=== PATIENT | male | born 1940 | race American Indian/Alaskan Native ===

== ENCOUNTER 2018-07-07 21:39 | Observation (INO) | payer MEDICARE ==
[2018-07-07] MEDS ORDERED: Albuterol-Ipratrop 3 mg / 0.5 (3 ml) UD INH STA (22:56)
[2018-07-07] MEDS ORDERED: Albuterol-Ipratrop 3 mg / 0.5 (3 ml) UD ONE (23:16)
[2018-07-07 23:34] LABS: BASO % 0.4 % (0.0-2.0); EOS # 0.5 K/uL (0.0-0.7); HEMOGLOBIN 12.1 g/dL (12.0-18.0); LYMPH # 1.9 K/uL (1.0-4.3); LYMPH % 31.7 % (20.0-40.0); MEAN CELL VOLUME 71.2 fl (80.0-94.0); MEAN CORPUSCULAR HEMOGLOBIN 22.3 pg (27.0-31.0); MEAN CORPUSCULAR HGB CONC 31.3 g/dL (33.0-37.0); MEAN PLATELET VOLUME 10.4 fl (7.2-11.7); MONO # 0.6 K/uL (0.0-0.8); MONO % 9.5 % (0.0-10.0); NEUT # 3.1 K/uL (1.8-7.0); NEUT % 50.4 % (50.0-75.0); NRBC % 0.2 % (0.0-0.0); RBC 5.41 Mil/uL (4.40-5.90); RED CELL DISTRIBUTION WIDTH 14.7 % (11.5-14.5); WHITE BLOOD COUNT 6.1 K/uL (4.8-10.8)
--- NOTE | 2018-07-07 23:40 | ED PDOC ---
HPI: General Adult Time Seen by Provider: 07/07/18 22:30 Chief Complaint (Nursing): Cough, Cold, Congestion Chief Complaint (Provider): Cough x 1 week History Per: Patient History/Exam Limitations: no limitations Onset/Duration Of Symptoms: Days Have you had recent travel within the past 21 days to any of the following countries: [place], [place], [place] or [place]?: No Additional Complaint(s): 77 yo male with no known medical problems presents for evaluation of cough x 1 week. Pt states he has yellow phlegm and is unable to sleep at night due to the cough. Pt states he has burning central chest pain only when coughing. Pt had fever the first few days of cough but states he did not take temperature and it resolved in 1-2 days. Denies leg swelling. Denies SOB. Pt has not seen a PMD since childhood. Past Medical History Reviewed: Historical Data, Nursing Documentation, Vital Signs Vital Signs: Last Vital Signs Temp 98.1 F 07/07/18 21:47 Pulse 68 07/07/18 21:47 Resp 16 07/07/18 21:47 BP 148/76 07/07/18 21:47 Pulse Ox 98 07/07/18 21:47 - Medical History PMH: No Chronic Diseases - Surgical History Surgical History: No Surg Hx - Family History Family History: States: Unknown Family Hx - Living Arrangements Living Arrangements: With Family - Allergies Allergies/Adverse Reactions: Allergies Allergy/AdvReac Type Severity Reaction Status Date / Time No Known Allergies Allergy Verified 07/07/18 21:50 Review of Systems ROS Statement: Except As Marked, All Systems Reviewed And Found Negative Constitutional: Positive for: Fever (Resolved ). Negative for: Chills Cardiovascular: Positive for: Chest Pain (with cough ). Negative for: Palpitations Respiratory: Positive for: Cough Gastrointestinal: Negative for: Nausea, Vomiting, Abdominal Pain Physical Exam - Reviewed Nursing Documentation Reviewed: Yes Vital Signs Reviewed: Yes - Physical Exam Appears: Positive for: Well, Non-toxic, No Acute Distress Head Exam: Positive for: ATRAUMATIC, NORMAL INSPECTION, NORMOCEPHALIC Skin: Positive for: Normal Color, Warm, DRY Eye Exam: Positive for: Normal appearance ENT: Positive for: Normal ENT Inspection Neck: Positive for: Normal, Painless ROM Cardiovascular/Chest: Negative for: Regular Rate, Rhythm, Murmur Respiratory: Positive for: Rhonchi, Wheezing. Negative for: Normal Breath Sounds, Accessory Muscle Use, Respiratory Distress Gastrointestinal/Abdominal: Positive for: Normal Exam, Soft. Negative for: Tenderness Back: Positive for: Normal Inspection Extremity: Positive for: Normal ROM Neurologic/Psych: Positive for: Alert, Oriented - Laboratory Results Result Diagrams: 07/07/18 23:30 - ECG O2 Sat by Pulse Oximetry: 98 Pulse Ox Interpretation: Normal Medical Decision Making Medical Decision Making: Possible infiltrate on CXR. Labs ordered Atrial flutter on EKG, rate controlled. CXR and EKG reviewed with Dr. Corona. Pt endorsed to Haley Linder PA-C at 2345 pending labs. Disposition - Clinical Impression Clinical Impression: Cough, Atrial flutter - Patient ED Disposition Is Patient to be Admitted: Transfer of Care - Disposition Disposition: Transfer of Care Disposition Time: 23:44 Condition: STABLE
[2018-07-07 23:53] LABS: ALBUMIN 3.8 g/dL (3.5-5.0); ALT/SGPT 37 U/L (21-72); AST/SGOT 40 U/L (17-59); B-TYPE NATRIURETIC PEPTIDE 2220 pg/ml (0-900); BLOOD UREA NITROGEN 13 mg/dl (9-20); CALCIUM 8.8 mg/dL (8.4-10.2); GFR NON-AFRICAN AMERICAN > 60
[2018-07-07] MEDS ORDERED: Nitroglycerin 2% Ointment Foilpak UD TOP STA (23:57)
[2018-07-08] MEDS ORDERED: Enoxaparin 80 mg Syringe SC STA (00:02)
--- NOTE | 2018-07-08 00:06 | ED PDOC ---
- Laboratory Results Result Diagrams: 07/07/18 23:30 07/07/18 23:30 - ECG O2 Sat by Pulse Oximetry: 98 - Progress ED Course And Treament: Case endorsed to procedure writer from Gordon MULLINS pending labs BNP elevated. IV lasix, Nitro, Lovenox ordered Case discussed with Dr. Velazquez, medical service on-call, for admission Disposition - Clinical Impression Clinical Impression: Cough, Atrial flutter, CHF (congestive heart failure) - POA Present On Arrival: None - Disposition Disposition: Hospitalized as Observation Patient Disposition Time: 00:00 Condition: FAIR
[2018-07-08] MEDS ORDERED: Nitroglycerin 2% Ointment Foilpak UD TOP ONE (00:32)
[2018-07-08 05:36] VITALS: RESP 20
[2018-07-08] MEDS ORDERED: Magnesium Sulfate 2 gm/50 ml 2 GM/50 ML BAG IVPB ONE (08:16)
--- NOTE | 2018-07-08 09:02 | CARD ---
APPROVED REPORT Date of service: 07/07/2018 EKG Measurement Heart [id number] P76 [id number] <Conclusion> Atrial flutter with 4:[address] and T wave abnormality Abnormal ECG
--- NOTE | 2018-07-08 09:07 | CP.PCM.HP ---
<Jl Cheo - Last Filed: 07/08/18 08:55> History of Present Illness - History of Present Illness History of Present Illness: 77 y/o M was admitted for evaluation and management of atrial flutter. Pt presented to ED with productive cough and chest pain upon coughing. At ED, Albuterol neb, IV Lasix and magnessium were administered. EKG showed atrial flutter 4:1. --Today, pt was evaluated and examined by bedside with Dr Velazquez. Pt reported feeling better, cough is still presents but less productive, denies chest pain. Pt afebrile, tolerating PO with NO acute events overnight. PMD: none PMHx: denied PSHx: denied FHx: unknown SHx: denies smoking, alcohol or rec drugs. Present on Admission - Present on Admission Any Indicators Present on Admission: No Review of Systems - Constitutional Constitutional: absent: Chills, Fever - EENT Nose/Mouth/Throat: absent: Nasal Congestion, Sore Throat, Neck Pain, Neck Mass - Cardiovascular Cardiovascular: Chest Pain. absent: Dyspnea, Palpitations - Respiratory Respiratory: Cough. absent: Dyspnea, Hemoptysis - Gastrointestinal Gastrointestinal: absent: Abdominal Pain, Bloating, Nausea, Vomiting - Genitourinary Genitourinary: absent: Dysuria, Flank Pain, Hematuria Past Patient History - Past Medical History & Family History Past Medical History?: Yes - Past Social History Smoking Status: Former Smoker - CARDIAC Hx Cardiac Disorders: No (CHF) - PULMONARY Hx Respiratory Disorders: No - NEUROLOGICAL Hx Neurological Disorder: No - HEENT Hx HEENT Problems: No - RENAL Hx Chronic Kidney Disease: No - ENDOCRINE/METABOLIC Hx Endocrine Disorders: No - HEMATOLOGICAL/ONCOLOGICAL Hx Blood Disorders: No - INTEGUMENTARY Hx Dermatological Problems: No - MUSCULOSKELETAL/RHEUMATOLOGICAL Hx Musculoskeletal Disorders: No Hx Falls: No - GENITOURINARY/GYNECOLOGICAL Hx Genitourinary Disorders: No - PSYCHIATRIC Hx Psychophysiologic Disorder: No Hx Substance Use: No - SURGICAL HISTORY Hx Surgeries: No - ANESTHESIA Hx Anesthesia: No Hx Anesthesia Reactions: No Meds Allergies/Adverse Reactions: Allergies Allergy/AdvReac Type Severity Reaction Status Date / Time No Known Allergies Allergy Verified 07/07/18 21:50 Physical Exam - Constitutional Appears: No Acute Distress - Head Exam Head Exam: NORMAL INSPECTION - Eye Exam Eye Exam: EOMI, Normal appearance - ENT Exam ENT Exam: Mucous Membranes Moist - Neck Exam Neck exam: Positive for: Full Rom. Negative for: Meningismus - Respiratory Exam Respiratory Exam: NORMAL BREATHING PATTERN. absent: Chest Wall Tenderness, Rhonchi, Wheezes - Cardiovascular Exam Cardiovascular Exam: +S1, +S2 - GI/Abdominal Exam GI & Abdominal Exam: Soft. absent: Distended, Guarding, Rebound, Tenderness - Extremities Exam Extremities exam: Positive for: full ROM, normal inspection. Negative for: calf tenderness - Neurological Exam Neurological exam: Alert, Oriented x3 Results - Vital Signs Recent Vital Signs: Last Vital Signs Temp 99.1 F 07/08/18 07:34 Pulse 84 07/08/18 07:34 Resp 20 07/08/18 07:34 BP 166/77 H 07/08/18 07:34 Pulse Ox 100 07/08/18 07:34 - Labs Result Diagrams: 07/07/18 23:30 07/07/18 23:30 Labs: Laboratory Results - last 24 hr 07/07/18 07/07/18 07/07/18 23:30 23:30 23:38 WBC 6.1 RBC 5.41 Hgb 12.1 Hct 38.6 MCV 71.2 L MCH 22.3 L MCHC 31.3 L RDW 14.7 H Plt Count 160 MPV 10.4 Neut % (Auto) 50.4 Lymph % (Auto) 31.7 Christian % (Auto) 9.5 Eos % (Auto) 8.0 H Baso % (Auto) 0.4 Neut # (Auto) 3.1 Lymph # (Auto) 1.9 Christian # (Auto) 0.6 Eos # (Auto) 0.5 Baso # (Auto) 0.0 Sodium 140 Potassium 4.3 Chloride 105 Carbon Dioxide 29 Anion Gap 10 BUN 13 Creatinine 1.0 Est GFR ( Amer) > 60 Est GFR (Non-Af Amer) > 60 Random Glucose 112 H Calcium 8.8 Total Bilirubin 0.5 AST 40 ALT 37 Alkaline Phosphatase 74 Troponin I 0.0330 NT-Pro-B Natriuret Pep 2220 H Total Protein 7.4 Albumin 3.8 Globulin 3.7 Albumin/Globulin Ratio 1.0 Influenza Typ A,B (EIA) Negative for flu a/b Assessment & Plan - Assessment and Plan (Free Text) Assessment: 77 y/o M was admitted for evaluation and management of atrial flutter. PLAN: --Afebrile --Cardiology consult, Dr Loya --Echocardiogram --F/U bloodwork --Heart healthy diet --Continue management as ordered. Case discussed with Dr Marcus Morales PGY-2 - Date & Time Date: 07/08/18 Time: 09:14 <Kevon Velazquez - Last Filed: 07/09/18 19:57> Results - Vital Signs Recent Vital Signs: Last Vital Signs Temp 98 F 07/08/18 12:03 Pulse 73 07/08/18 12:03 Resp 20 07/08/18 12:03 BP 173/66 H 07/08/18 12:03 Pulse Ox 96 07/08/18 12:03 - Labs Result Diagrams: 07/07/18 23:30 07/07/18 23:30 Assessment & Plan - Assessment and Plan (Free Text) Assessment: Patient was personally seen and examined by me in rounds with residents. Available labs and diagnostic data reviewed. Case, Patient's condition and management plan discussed with residents in rounds. Agree with resident's progress note. Plan: As ordered.
--- NOTE | 2018-07-08 09:43 | RAD ---
Date of service: 07/07/2018 HISTORY: cough COMPARISON: No prior. TECHNIQUE: Chest PA and lateral FINDINGS: LUNGS: No significant appearing consolidation appreciated. Scattered bilateral thread-like strands of linear horizontal and diagonal orientations compatible within fibrotic strands. Strands associated with bullous emphysematous changes is 1 consideration in the mid and upper lung zones. Some left infrahilar bronchial mild thickening is suggested. Lesser changes on the right at the same level also possible. 12 mm nodular opacity inferior right hilar location-possible prominent vessel seen on end. Other right perihilar pathology including small mass not excluded. Stability unknown. PLEURA: No significant pleural effusion identified. No pneumothorax apparent. CARDIOVASCULAR: There is presence of aortic atherosclerotic calcification on x-ray. Mild cardiomegaly no pulmonary vascular congestion. OSSEOUS STRUCTURES: No significant abnormalities. VISUALIZED UPPER ABDOMEN: Normal. OTHER FINDINGS: None. IMPRESSION: No dense consolidation. Minimal-mild bilateral infrahilar peribronchial thickening-left greater than right can be seen with bronchitic changes-chronicity unknown. 12 mm nodular opacity projecting over the inferior right hilar location-clinical significance (if any) is unknown. For this consider CT of the chest with contrast. 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 Probable thin thread-like strands of fibrosis scattered in both lungs also noted.
[2018-07-08 10:05] LABS: TROPONIN I 0.033 ng/mL (0.00-0.120)
[2018-07-08 12:06] VITALS: BP 173/66; PULSE 73; TEMP 98; O2SAT 96
--- NOTE | 2018-07-08 12:33 | CARD ---
APPROVED REPORT Date of service: 07/08/2018 EKG Measurement Heart [id number] [place] [id number] <Conclusion> Normal sinus rhythm Biatrial enlargement Nonspecific T wave abnormality Prolonged QT Abnormal ECG
--- NOTE | 2018-07-08 13:27 | CARD ---
APPROVED REPORT Date of service: 07/08/2018 EXAM: Two-dimensional and M-mode echocardiogram with Doppler and color Doppler. Other Information Quality : GoodRhythm : NSR INDICATION Abnormal EKG/Arrhythmia 2D DIMENSIONS IVSd1.75 (0.7-1.1cm)LVDd3.95 (3.9-5.9cm) LVOT Diameter1.71 (1.8-2.4cm)PWd1.74 (0.7-1.1cm) IVSs2.24 (0.8-1.2cm)LVDs2.47 (2.5-4.0cm) FS (%) 37.4 %PWs1.73 (0.8-1.2cm) M-Mode DIMENSIONS Left Atrium (MM)4.65 (2.5-4.0cm)IVSd1.29 (0.7-1.1cm) Aortic Root2.50 (2.2-3.7cm)LVDd4.71 (4.0-5.6cm) Aortic Cusp Exc.0.79 (1.5-2.0cm)PWd1.32 (0.7-1.1cm) IVSs2.21 cmFS (%) 59 % LVDs1.91 (2.0-3.8cm)PWs2.26 cm Aortic Valve AoV Peak Iqhypfsz481.9cm/sAoV VTI49.8cmAO Peak GR.34mmHg LVOT Peak Hssgugns957.9cm/sLVOT VTI25.17cmAO Mean GR.19mmHg TANNA (VMAX)0.38fx0KST (VTI)0.86se4UJ P 1/2 Ndqe625ve Mitral Valve MV E Ldqptupx98.1cm/sMV DECEL JLAH297ijPE A Dosvqjhz49.9cm/s MV UKQ27uzJ/A ratio1.2MVA (PHT)3.27cm2 TDI Lateral E' Peak V4.64cm/sMedial E' Peak V6.19cm/sE/Lateral E'18.3 E/Medial E'13.7 Tricuspid Valve TR Peak Nxrvlfuk639pm/sRAP [id number] Peak Gr.24mmHg [id number] LEFT VENTRICLE The left ventricle is normal size. There is normal left ventricular wall thickness. The left ventricular systolic function is normal. The estimated ejection fraction is 60-65% No regional wall motion abnormalities noted.. Transmitral Doppler flow pattern is Grade II-pseudonormal filling dynamics. No left ventricle thrombus noted on this study. There is no ventricular septal defect visualized. There is no left ventricular aneurysm. There is no mass noted in the left ventricle. RIGHT VENTRICLE The right ventricle is normal size. There is normal right ventricular wall thickness. The right ventricular systolic function is normal. ATRIA The left atrium is moderately dilated. The right atrium size is normal. The interatrial septum is intact with no evidence for an atrial septal defect. AORTIC VALVE The aortic valve is normal in structure. Calcified leaflets. Moderate aortic regurgitation is present. There is moderate aortic valvular stenosis. Peak AV velocity is 3 m/sec and calculated TANNA is 1.1 cm2. Correlate clinically. There is no aortic valvular vegetation. MITRAL VALVE The mitral valve is normal in structure. There is no evidence of mitral valve prolapse. There is no mitral valve stenosis. There is mild mitral valve regurgitation noted. TRICUSPID VALVE The tricuspid valve is normal in structure. There is mild tricuspid valve regurgitation noted. RVSP is calculated at 33 mm Hg. There is no tricuspid valve prolapse or vegetation. There is no tricuspid valve stenosis. PULMONIC VALVE The pulmonary valve is normal in structure. There is no pulmonic valvular regurgitation. There is no pulmonic valvular stenosis. GREAT VESSELS The aortic root is normal in size. The ascending aorta is normal in size. The pulmonary artery is normal. The IVC is normal in size and collapses >50% with inspiration. PERICARDIAL EFFUSION There is no pericardial effusion. There is no pleural effusion. <Conclusion> The estimated ejection fraction is 60-65% Transmitral Doppler flow pattern is Grade II-pseudonormal filling dynamics. The left atrium is moderately dilated. Moderate aortic regurgitation is present. There is moderate aortic valvular stenosis. Peak AV velocity is 3 m/sec and calculated TANNA is 1.1 cm2. Correlate clinically. There is mild tricuspid valve regurgitation noted. RVSP is calculated at 33 mm Hg.
== END 2018-07-08 15:00 | disposition left against medical advice (07) ==
LOC: H.ER 21:39 → H.ERHOLD 23:56 → H.TEL 07-08 03:07
PROVIDERS: ADMIT Internal Medicine; ATTEND Internal Medicine
DX: I48.92 Unspecified atrial flutter (principal); Z87.891 Personal history of nicotine dependence
CPT/HCPCS: 36415; 71046; 80053; 82607; 83735; 83880; 84100; 84443; 84484; 85025; 87804; 93005; 93306; 94640; 96365; 96372; 96375; 96376; 99285; G0378; J1650; J1940